=== PATIENT | male | born 1985 | race Caucasian/White ===

== ENCOUNTER 2018-02-25 05:44 | Day surgery (SDC) | payer OTHER ==
[~2018-02-25] VITALS: Ht 185.4 cm; Wt 88.5 kg
[~2018-02-25 05:44] MED LIST: ACET325T21 PO; ALPH300C PO; CETI10TA16 PO; MAGN400C PO; MELO15TA6 PO; MIRT15TA PO
[2018-02-25] MEDS ORDERED: EPINEPHrine VIAL 30 MG/30 ML VIAL ONE (05:57)
[2018-02-25] MEDS ORDERED: BUPIVACAINE 0.5% 50 ML VIAL. ONE (05:58)
[2018-02-25] MEDS ORDERED: LIDOCAINE 1% PF 30 ML VIAL. ONE (05:58)
[2018-02-25] MEDS ORDERED: fentaNYL PF VIAL 100 MCG/2 ML VIAL ONE (06:59)
[2018-02-25] MEDS ORDERED: MIDAZOLAM HCL/PF 2 MG/2 ML VIAL. ONE (06:59)
[2018-02-25] MEDS ORDERED: HYDROmorphone 2 MG/ML VIAL IV PRN (07:00)
[2018-02-25] MEDS ORDERED: ceFAZolin 2GM PREMIX 2 GM/50 ML BAG IV ONE (07:00)
[2018-02-25] MEDS ORDERED: fentaNYL PF VIAL 100 MCG/2 ML VIAL IV PRN ×2 (07:00)
[2018-02-25] MEDS ORDERED: IV RINGERS,LACTATED 1000ML 1,000 ML IV SCH (07:00)
[2018-02-25] MEDS ORDERED: DEXAMETHASONE SOD PHOS 20 MG/5 ML VIAL. ONE ×2 (07:00→09:51)
[2018-02-25] MEDS ORDERED: MORPHINE SULFATE 2 MG/ML VIAL. IV PRN (07:00)
[2018-02-25] MEDS ORDERED: LIDOCAINE 1% PF 2 ML VIAL. ID PRN (07:00)
[2018-02-25] MEDS ORDERED: ONDANSETRON PF 4 MG/2 ML VIAL. IV PRN (07:00)
[2018-02-25] MEDS ORDERED: KETOROLAC 30 MG/ML INJ FOR OR. INJ ONE (07:00)
[2018-02-25] MEDS ORDERED: PROPOFOL 0 ML IV ONE (07:00)
[2018-02-25] MEDS ORDERED: ONDANSETRON PF 4 MG/2 ML VIAL. ONE ×2 (07:00→09:51)
[2018-02-25] MEDS ORDERED: PROCHLORPERAZINE 10 MG/2 ML VIAL. IV PRN (07:00)
[2018-02-25] MEDS ORDERED: SEVOFLURANE 61 TO 120 MINUTES. IH ONE ×2 (07:00→09:48)
[2018-02-25] MEDS ORDERED: LIDOCAINE 2% PF Vial for OR 5 ML VIAL. ONE ×2 (07:00→09:51)
[2018-02-25] MEDS ORDERED: SUCCINYLCHOLINE 200 MG/10 ML VIAL. ONE (08:35)
[2018-02-25] MEDS ORDERED: fentaNYL PF VIAL 250 MCG/5 ML VIAL ONE (08:36)
--- NOTE | 2018-02-25 08:50 | DISCH ---
DISCHARGE INSTRUCTIONS Condition on Discharge Condition on Discharge: Stable Activity After Discharge Activity Instructions for Disc: Activity as tolerated Bathing Instructions: Shower-keep dressing dry Weight Bearing Status after Di: As tolerated Diet after Discharge Diet after Discharge: Regular Wound Incision Care Wound/Incision Care: Ice to area for comfort, Keep wound/cast CDI, Change dressing Other wound/incision instructi: ok to change dressing in [address] after DC Call your doctor for: Concerns you may have Follow-Up Follow up with: Peter in 2 wks SANTHOSH BENRSTEIN II, MD Feb 25, 2018 08:50
[2018-02-25] MEDS ORDERED: PROPOFOL 20 ML IV ONE (09:51)
[2018-02-25] MEDS ORDERED: METOCLOPRAMIDE HCL 10 MG/2 ML VIAL. ONE (09:51)
--- NOTE | 2018-02-25 10:08 | PDOC4 ---
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 Findings: #1 intact cartilage tricompartmentally #2 chronic appearing partial ACL tear #3 no loose bodies #4 normal medial meniscus #5 oblique flap tear of the root of lateral meniscus, the root was stable. #6 radial tear midportion of body lateral meniscus Tourniquet time: less than 60 minutes Blood loss: 5 mL Reason for procedure: Patient is a very pleasant inmate who suffered a knee injury several months ago. He has had pain, intermittent swelling and dysfunction of his knee since his injury. Clinical and a graphic examination including MRI were performed by myself and after reviewing the MRI I had a discussion of the risks, benefits, and alternatives to the above surgery and attempted meniscus repair and he wished to proceed. Description of procedure: Patient was greeted in the preoperative area by myself for the correct extremity was verified and marked. He was taken back to the operative suite and his antibiotics were started as he was brought back. Once in the operating room, he was transferred gently supine to the operating room table and secured the bed with all pressure points padded. I conducted my examination under anesthesia which demonstrated full range of motion in the knee that was stable to varus and valgus in extension and 30 of flexion. He had a negative Douglas with solid endpoint. Negative pivot. I then applied a nonsterile tourniquet to his left upper thigh and taped in place. Padded bump laterally at his hip and padded foot rest were secured to the bed to help maintain his knee in 90 passively. We then proceeded to prep and drape left lower extremity in our usual sterile fashion and conducted our standard preoperative timeout. After this, I palpated and marked surface anatomy and sofy a line from a incision for my standard anterolateral arthroscopic portal. I exsanguinated the extremity with an Esmarch and tourniquet was insufflated to 250 mmHg. After this, I incised skin with a scalpel and introduced a blunt arthroscopic trocar into the suprapatellar pouch followed by the camera. I then entered the medial compartment of the knee and used a spinal needle to localize an anteromedial portal and incised skin in accordance with this. I dilated this well. I then inserted my probe and conducted my diagnostic arthroscopy with above noted findings. He was in the [id number] position for the inspection of his lateral compartment, I debrided the flap tear at the root with combination of shaver and arthroscopic biter back to stable edge. I probed the right, it was stable. I then used a shaver and meniscal rasp to debride the fibrotic tissue at the radial tear, there was no visible hematoma. Given the near full-thickness of this tear, I elected to repair it. I used the zone specific cannulas to shuttle 3 sutures through in a mattress fashion, 2 in the upper portion and one in the undersurface,. I then removed the arthroscopic interpretation and created a 2 cm incision laterally at his knee to retrieve the sutures through and then tied them down to each other securely. I then reassured used to camera through my anteromedial portal and inspected my repair. I then reinspected the entire knee to make sure I removed all loose pieces. I placed the camera and shaver into the suprapatellar pouch and performed repeated aspiration maneuvers. After this, I removed all excess arthroscopic fluid and the inch mentation. The lateral incision was closed with inverted interrupted 2-0 Vicryl followed by running 4-0 Monocryl in a subarticular fashion. Simple interrupted 3-0 nylon was used for portals. A sterile dressing was applied followed by an Jorge wrap followed by a hinged knee brace set from 0-90. Hell be nonweightbearing 6 weeks. He will be discharged back to long term. Hell follow up with me in 2-3 weeks. MARCELLUS BERNSTEIN II, MD Feb 25, 2018 10:08
[2018-02-25] MEDS ORDERED: OXYC-323 PO (10:21)
[2018-02-25] MEDS ORDERED: DOCU-109 PO (10:22)
[2018-02-25] MEDS ORDERED: ONDA8TAB12 PO (10:23)
[2018-02-25] MEDS ORDERED: oxyCODONE/APAP 5/325 1 TAB TABLET PO ONE (10:30)
[2018-02-25 11:05] VITALS: BP 140/65
== END 2018-02-25 11:56 | disposition home or self-care (01) ==
LOC: SURG 05:44
PROVIDERS: ATTEND Orthopaedic Surgery Sports Medicine
DX: M23.362 Other meniscus derangements, other lateral meniscus, left knee (principal); M23.8X2 Other internal derangements of left knee; Z79.899 Other long term (current) drug therapy
CPT/HCPCS: 29882; C1782; J0171; J0330; J0690; J1100; J2001; J2405; J2704; J2765; J3010; J7120; A7015; J1885; J2250; J3490